=== PATIENT | male | born 1960 | race American Indian/Alaskan Native ===

== ENCOUNTER 2021-10-14 10:26 | Outpatient (CLI) | payer BC ==
--- NOTE | 2021-10-14 14:19 | Magnetic Resonance Report ---
MRI PELVIS WITHOUT AND WITH CONTRAST INDICATION: N48.6 INDURATION PENIS PLASTICA, VEINS ON SHAFT AREA PAIN. TECHNIQUE: Multiplanar, multisequence imaging was performed through the pelvis before and after injection of 16 cc Clariscan contrast. COMPARISON: None available. FINDINGS: BOWEL: No significant abnormality. APPENDIX: Not seen. PERITONEUM: No free fluid. No free air. No fluid collection. LYMPH NODES: No significant adenopathy. ARTERIES: No significant abnormality. VEINS: No significant abnormality. URINARY BLADDER: No significant abnormality. REPRODUCTIVE ORGANS: The prostate gland is not significantly enlarged, but does demonstrate mild nodu lar mass effect on the floor the bladder. The penis is unremarkable as seen without visualization of a mass or significant inflammation. No significant penile plaque is seen. No significant abnormality of the testicles is appreciated. No significant hydrocele. ADDITIONAL FINDINGS: None. SKELETAL SYSTEM: No significant abnormality. IMPRESSION: No MRI abnormality of the penis to suggest Peyronie disease. No other significant abnormality to expl ain the patient's penile pain. Signer Name: Joe Martinez MD Signed: 10/14/2021 2:15 PM Workstation Name: [id number]
== END 2021-10-14 10:27 | disposition home or self-care (01) ==
LOC: MRI 10:26
PROVIDERS: ATTEND Urology
DX: N48.6 Induration penis plastica (principal)
CPT/HCPCS: 72197; A9575